=== PATIENT | female | born 1940 | race Caucasian/White ===

== ENCOUNTER 2017-11-21 11:22 | Inpatient (IN) ==
[2017-11-21] MEDS ORDERED: FUROSEMIDE 100 MG/10 ML VIAL IV STA (12:07)
[2017-11-21] MEDS ORDERED: ONDANSETRON 4 MG/2 ML VIAL IV STA (12:07)
[2017-11-21] MEDS ORDERED: methylPREDNISolone SOD SUC 125 MG/2 ML VIAL IV STA (12:07)
[2017-11-21] MEDS ORDERED: ALBUTEROL 2.5 MG/3 ML NEB RESP TX SCH (12:30)
[2017-11-21 12:48] LABS: Basophils % 0.2 % (0.0-0.8); Eosinophils # 0.1 10*3/uL (0.0-0.87); Eosinophils % 0.8 % (0.00-10.9); Hematocrit 36.6 VOL% (35.7-47.0); Hemoglobin 11.7 GM/DL (12.0-16.0); Immature Granulocytes % 1.5 %; Immature Granulocytes Absolute 0.21 #; Lymphocytes # 1.9 10*3/uL (1.4-4.0); Lymphocytes % 13.5 % (21.3-54.2); Mean Corpuscular Hemoglobin 30 PG (27-34); Mean Corpuscular Volume 95.1 FL (87-102); Mean Platelet Volume 10.5 FL (9.6-12.0); Monocytes # 0.8 10*3/uL (0.11-0.8); Monocytes % 5.5 % (1.7-12.7); NRBC # 0.02 10*3/uL; Neutrophils # 11.1 10*3/uL (1.4-7.4); Neutrophils % 78.5 % (38.7-73.9); Platelet Count 183 T/CUMM (130-400); Red Blood Count 3.85 MC/CUMM (3.8-5.5); Red Cell Distribution Width 15.3 % (9.3-17.3); White Blood Count 14.1 T/CUMM (4-12)
[2017-11-21 12:58] LABS: INR 0.9; PT Patient Result 9.4 SECS
[2017-11-21 13:09] LABS: Albumin 2.7 G/DL (3.4-5.0); Bilirubin,Total 0.8 MG/DL (0.2-1.0); Calcium 8.8 MG/DL (8.5-10.1); Osmolality,Calculated 283.4 MOS/KG (273-304); Potassium 4.4 MMOL/L (3.5-5.1); Total Protein 6.3 G/DL (6.4-8.3)
[2017-11-21 13:26] LABS: Apearance,Urine CLEAR (Clear); Bilirubin,Urine Negative (Negative); Blood, Urine Negative (Negative); Glucose,Urine (UA) Negative (Negative); Hyaline Casts,Urine 1 /LPF (0-3); Ketones,Urine Negative (Negative); Mucus,Urine Occasional /LPF (Occasional); Nitrite,Urine Negative (Negative); Protein,Urine Negative; RBC,Urine <1 /HPF (0-4); Urine Color Straw (Yellow); Urine Specific Gravity 1.006 (1.001-1.035); Urine Urobilinogen < 2.0 EU/DL (0.2-1.0); WBC,Urine <1 /HPF (0-6)
[2017-11-21] MEDS ORDERED: DOCUSATE SODIUM 100 MG CAPSULE PO PRN (15:38)
[2017-11-21] MEDS ORDERED: ONDANSETRON 4 MG/2 ML VIAL IV PRN (15:38)
[2017-11-21] MEDS ORDERED: ACETAMINOPHEN 325 MG TABLET PO PRN (15:38)
[2017-11-21] MEDS ORDERED: MORPHINE 4 MG/1 ML VIAL IV PRN (15:38)
[2017-11-21 17:07] LABS: ABG Base Excess 2.8 MMOL/L (-2.5-2.5); ABG HCO3 26.9 MMOL/L (20-26); ABG Oxygen Saturation 97.5 % (95-100); ABG PCO2 48.7 MM HG (35-48); ABG PH 7.377 (7.35-7.45); ABG TCO2 25.9 MMOL/L (23-27)
[2017-11-21] MEDS ORDERED: INFLUENZA VIRUS VACCINE 0.5 ML SYRINGE IM ONE (17:53)
[2017-11-21] MEDS: ENOXAPARIN 40 MG/0.4 ML SYRINGE SUBCUT SCH (18:10)
[2017-11-21 20:06] LABS: Troponin I < 0.015 NG/ML (0.00-0.045)
[2017-11-21] MEDS: cloNIDine 0.1 MG TABLET PO SCH (21:11)
[2017-11-21] MEDS: LOSARTAN 50 MG TABLET PO SCH (21:11)
[2017-11-21] MEDS: ALPRAZolam 0.25 MG TABLET PO PRN (21:11)
[2017-11-21 21:48] LABS: Troponin I < 0.015 NG/ML (0.00-0.045)
[2017-11-22] MEDS: ALBUTEROL/IPRATROPIUM 3 ML NEB RESP TX SCH ×7 (03:10→23:09)
[2017-11-22] MEDS: LEVOTHYROXINE 50 MCG TABLET PO SCH (05:57)
[2017-11-22 06:44] LABS: Basophils % 0.1 % (0.0-0.8); Hematocrit 34.3 VOL% (35.7-47.0); Hemoglobin 10.8 GM/DL (12.0-16.0); Immature Granulocytes % 1.4 %; Immature Granulocytes Absolute 0.22 #; Lymphocytes # 0.6 10*3/uL (1.4-4.0); Lymphocytes % 3.8 % (21.3-54.2); Mean Corpuscular HGB Conc 31.5 GM/DL (32-36); Mean Corpuscular Hemoglobin 30 PG (27-34); Mean Corpuscular Volume 94.5 FL (87-102); Mean Platelet Volume 10.8 FL (9.6-12.0); Monocytes # 0.4 10*3/uL (0.11-0.8); Monocytes % 2.4 % (1.7-12.7); Neutrophils # 14.5 10*3/uL (1.4-7.4); Neutrophils % 92.3 % (38.7-73.9); Platelet Count 178 T/CUMM (130-400); Red Blood Count 3.63 MC/CUMM (3.8-5.5); Red Cell Distribution Width 14.9 % (9.3-17.3); White Blood Count 15.7 T/CUMM (4-12)
[2017-11-22 07:07] LABS: Band Neutrophils 3 % (0-10); Lymphocytes 5 % (20-55); Macrocytosis 1+; Platelet Estimate Normal; Segmented Neutrophils 89 % (50-85); Total Cells Counted 100
[2017-11-22 07:11] LABS: Calcium 8.6 MG/DL (8.5-10.1)
[2017-11-22 07:12] LABS: Osmolality,Calculated 293.4 MOS/KG (273-304); Potassium 4.6 MMOL/L (3.5-5.1); Risk Ratio 2.89; VLDL CHOLESTEROL 22.4 MG/DL
[2017-11-22] MEDS ORDERED: FUROSEMIDE 20 MG TABLET PO SCH (09:00)
[2017-11-22] MEDS: ASPIRIN 325 MG TABLET PO SCH (10:57)
[2017-11-22] MEDS: LOSARTAN 50 MG TABLET PO SCH (10:58)
[2017-11-22] MEDS: cloNIDine 0.1 MG TABLET PO SCH ×2 (10:58→21:25)
[2017-11-22] MEDS: amLODIPine 2.5 MG TABLET PO SCH (10:58)
[2017-11-22] MEDS: ATORVASTATIN 40 MG TABLET PO SCH (10:58)
[2017-11-22] MEDS: predniSONE 20 MG TABLET PO SCH (10:59)
[2017-11-22] MEDS: PANTOPRAZOLE 40 MG VIAL IV SCH (10:59)
[2017-11-22] MEDS: SODIUM CHLORIDE 0.9% 1,000 ML IV SCH ×2 (11:23→21:28)
[2017-11-22] MEDS ORDERED: cloNIDine 0.1 MG TABLET PO PRN (14:17)
[2017-11-22] MEDS: NEBIVOLOL 5 MG TABLET PO SCH (15:09)
[2017-11-22] MEDS: ACETYLCYSTEINE 600 MG CAPSULE PO SCH ×2 (15:09→21:23)
[2017-11-22] MEDS: ENOXAPARIN 40 MG/0.4 ML SYRINGE SUBCUT SCH (15:09)
[2017-11-22] MEDS ORDERED: POTASSIUM CHLORIDE RIDER 10 MEQ in PREMIX 1 EACH IV PRN (17:56)
[2017-11-22] MEDS ORDERED: MAGNESIUM SULF RIDER 2 GM in PREMIX 1 EACH IV PRN (17:56)
[2017-11-22] MEDS: ALPRAZolam 0.25 MG TABLET PO PRN (21:23)
[2017-11-22] MEDS ORDERED: ENOXAPARIN 40 MG/0.4 ML SYRINGE SUBCUT ONE (21:57)
[2017-11-22] MEDS ORDERED: ASPIRIN CHEW 81 MG TABLET PO ONE (22:00)
[2017-11-23] MEDS: ALBUTEROL/IPRATROPIUM 3 ML NEB RESP TX SCH ×6 (03:21→23:42)
[2017-11-23] MEDS ORDERED: DIAZEPAM 5 MG TABLET PO ONE (06:00)
[2017-11-23] MEDS ORDERED: diphenhydrAMINE CAP 25 MG CAPSULE PO ONE (06:00)
[2017-11-23] MEDS: LEVOTHYROXINE 50 MCG TABLET PO SCH (06:15)
[2017-11-23] MEDS: SODIUM CHLORIDE 0.9% 1,000 ML IV SCH ×3 (06:21→18:10)
[2017-11-23 06:58] LABS: Calcium 7.6 MG/DL (8.5-10.1); Osmolality,Calculated 292.3 MOS/KG (273-304); Potassium 4.4 MMOL/L (3.5-5.1)
[2017-11-23] MEDS ORDERED: ENOXAPARIN 40 MG/0.4 ML SYRINGE SUBCUT SCH (07:00)
[2017-11-23] MEDS: ASPIRIN 325 MG TABLET PO SCH (09:14)
[2017-11-23] MEDS: amLODIPine 2.5 MG TABLET PO SCH (09:14)
[2017-11-23] MEDS: ACETYLCYSTEINE 600 MG CAPSULE PO SCH ×2 (09:14→20:45)
[2017-11-23] MEDS: ATORVASTATIN 40 MG TABLET PO SCH (09:15)
[2017-11-23] MEDS: cloNIDine 0.1 MG TABLET PO SCH ×2 (09:15→20:46)
[2017-11-23] MEDS: predniSONE 20 MG TABLET PO SCH (09:15)
[2017-11-23] MEDS: NEBIVOLOL 5 MG TABLET PO SCH (09:15)
[2017-11-23] MEDS: PANTOPRAZOLE 40 MG VIAL IV SCH (09:18)
[2017-11-23] MEDS ORDERED: DIAZEPAM 5 MG TABLET ONE (13:41)
[2017-11-23] MEDS ORDERED: diphenhydrAMINE CAP 25 MG CAPSULE ONE (13:42)
[2017-11-23] MEDS ORDERED: fentaNYL 100 MCG/2 ML VIAL ONE (13:59)
[2017-11-23] MEDS ORDERED: HEPARIN 5,000 UNIT/1 ML VIAL ONE (13:59)
[2017-11-23] MEDS ORDERED: LIDOCAINE 1% 20 ML VIAL ONE (13:59)
[2017-11-23] MEDS ORDERED: MIDAZOLAM 2 MG/2 ML VIAL ONE (13:59)
[2017-11-23] MEDS ORDERED: TIROFIBAN 5,000 MCG/100 ML PREMIX IV ONE (14:33)
[2017-11-23] MEDS ORDERED: TIROFIBAN 5,000 MCG/100 ML PREMIX IV SCH (14:39)
[2017-11-23] MEDS ORDERED: TICAGRELOR 90 MG TABLET ONE (15:13)
[2017-11-23] MEDS: ENOXAPARIN 40 MG/0.4 ML SYRINGE SUBCUT SCH (16:20)
[2017-11-23 17:30] LABS: Troponin I 0.018 NG/ML (0.00-0.045)
[2017-11-23] MEDS: ALPRAZolam 0.25 MG TABLET PO PRN (20:45)
[2017-11-23] MEDS: TICAGRELOR 90 MG TABLET PO SCH (20:45)
[2017-11-24 00:58] LABS: Basophils % 0.1 % (0.0-0.8); Eosinophils % 0.1 % (0.00-10.9); Immature Granulocytes % 1.1 %; Immature Granulocytes Absolute 0.14 #; Lymphocytes % 7.8 % (21.3-54.2); Mean Corpuscular Hemoglobin 30 PG (27-34); Mean Corpuscular Volume 97.3 FL (87-102); Mean Platelet Volume 10.5 FL (9.6-12.0); Monocytes # 0.7 10*3/uL (0.11-0.8); Monocytes % 5.4 % (1.7-12.7); Neutrophils # 11.3 10*3/uL (1.4-7.4); Neutrophils % 85.5 % (38.7-73.9); Platelet Count 164 T/CUMM (130-400); Red Blood Count 2.98 MC/CUMM (3.8-5.5); Red Cell Distribution Width 15.5 % (9.3-17.3); White Blood Count 13.2 T/CUMM (4-12)
[2017-11-24] MEDS: SODIUM CHLORIDE 0.9% 1,000 ML IV SCH (01:13)
[2017-11-24 01:18] LABS: Calcium 7.5 MG/DL (8.5-10.1); Osmolality,Calculated 290.8 MOS/KG (273-304); Potassium 4.6 MMOL/L (3.5-5.1)
[2017-11-24 01:23] LABS: Bilirubin,Total 0.7 MG/DL (0.2-1.0); Calcium 7.5 MG/DL (8.5-10.1); Osmolality,Calculated 290.8 MOS/KG (273-304); Potassium 4.5 MMOL/L (3.5-5.1); Total Protein 5.1 G/DL (6.4-8.3)
[2017-11-24 01:24] LABS: Troponin I 0.025 NG/ML (0.00-0.045)
[2017-11-24] MEDS: ALBUTEROL/IPRATROPIUM 3 ML NEB RESP TX SCH ×4 (03:38→14:00)
[2017-11-24] MEDS: LEVOTHYROXINE 50 MCG TABLET PO SCH (06:15)
[2017-11-24 08:07] VITALS: BP 156/61
[2017-11-24] MEDS ORDERED: ASPIRIN CHEW 81 MG TABLET PO SCH (09:00)
[2017-11-24] MEDS: PANTOPRAZOLE 40 MG VIAL IV SCH (09:14)
[2017-11-24] MEDS: ACETYLCYSTEINE 600 MG CAPSULE PO SCH (09:15)
[2017-11-24] MEDS: predniSONE 20 MG TABLET PO SCH (09:15)
[2017-11-24] MEDS: NEBIVOLOL 5 MG TABLET PO SCH (09:15)
[2017-11-24] MEDS: TICAGRELOR 90 MG TABLET PO SCH (09:15)
[2017-11-24] MEDS: ATORVASTATIN 40 MG TABLET PO SCH (09:15)
[2017-11-24] MEDS: cloNIDine 0.1 MG TABLET PO SCH (09:16)
[2017-11-24] MEDS: amLODIPine 2.5 MG TABLET PO SCH (09:16)
[2017-11-24] MEDS ORDERED: FUROSEMIDE 40 MG TABLET PO ONE (12:10)
== END 2017-11-24 15:15 | disposition home or self-care (01) | DRG 247 ==
LOC: N.ED 11:22 → N.EDINP 15:38 → N.2W 16:08 → N.TELEN 18:07
PROVIDERS: ADMIT Internal Medicine; ATTEND Internal Medicine